=== PATIENT | male | born 1940 ===

== ENCOUNTER 2019-07-02 09:04 | Emergency (ER) | payer MEDICARE ==
[~2019-07-02] VITALS: Ht 167.6 cm; Wt 111.1 kg
[~2019-07-02 09:04] MED LIST: AZIT250 PO; DOCU100 PO; HYDACE5 PO; LORA1 PO; LOSHYD100 PO
[2019-07-02] MEDS ORDERED: METFORMIN HCL500 M3 PO (09:17)
[2019-07-02] MEDS ORDERED: LOSARTAN POTAS100 MG PO (09:17)
[2019-07-02] MEDS ORDERED: Hydrochloroth12.5 MG PO (09:17)
[2019-07-02] MEDS ORDERED: LOSARTAN-HCTZ1 EAC2 PO (09:18)
[2019-07-02] MEDS ORDERED: Norco 10-325 T1 EACH PO (12:27)
== END 2019-07-02 15:40 | disposition home or self-care (01) ==
LOC: ER 09:04
DX: G89.29 Other chronic pain (principal); M54.5 Low back pain; F41.9 Anxiety disorder, unspecified; I10 Essential (primary) hypertension; E11.9 Type 2 diabetes mellitus without complications; E66.01 Morbid (severe) obesity due to excess calories; Z68.39 Body mass index [BMI] 39.0-39.9, adult; Z88.0 Allergy status to penicillin; Z88.8 Allergy status to other drugs, medicaments and biological substances; Z91.048 Other nonmedicinal substance allergy status; Z79.899 Other long term (current) drug therapy; Z79.84 Long term (current) use of oral hypoglycemic drugs
CPT/HCPCS: 72100; 96374; 99283-25; J1170

== ENCOUNTER 2020-10-17 09:52 | Emergency (ER) | payer MEDICARE ==
[~2020-10-17] VITALS: Ht 167.6 cm; Wt 122.5 kg
[~2020-10-17 09:52] MED LIST changes: +Hydrochloroth12.5 MG PO; +LOSARTAN POTAS100 MG PO; +LOSARTAN-HCTZ1 EAC2 PO; +METFORMIN HCL500 M3 PO; +Norco 10-325 T1 EACH PO
[2020-10-17] MEDS ORDERED: FUROSEMIDE40 MG PO (10:25)
[2020-10-17] MEDS ORDERED: HYDR1TAB94 PO (11:01)
== END 2020-10-17 12:07 | disposition home or self-care (01) ==
LOC: ER 09:52
DX: S86.812A Strain of other muscle(s) and tendon(s) at lower leg level, left leg, initial encounter (principal); I10 Essential (primary) hypertension; E11.9 Type 2 diabetes mellitus without complications; Z79.84 Long term (current) use of oral hypoglycemic drugs; Z88.0 Allergy status to penicillin; Z91.09 Other allergy status, other than to drugs and biological substances; Z79.01 Long term (current) use of anticoagulants; Z79.899 Other long term (current) drug therapy; X50.1XXA Overexertion from prolonged static or awkward postures, initial encounter
CPT/HCPCS: 29505; 73562-LT; 99283-25; A9270

== ENCOUNTER 2022-03-02 06:53 | Day surgery (SDC) | payer MEDICARE ==
[~2022-03-02] VITALS: Ht 167.6 cm; Wt 107.3 kg
[~2022-03-02 06:53] MED LIST changes: +FUROSEMIDE40 MG PO; +HYDR1TAB94 PO
--- NOTE | 2022-03-02 09:11 | NUR ---
03/02/22 0911 MATY BRITTON RN DEMETRI HANDOFF REPORT TO [facility] SILVA AND HAND OFF 75MCG FENTANYL. FENTANYL NOW IN [facility] RN POSESSION
== END 2022-03-02 09:51 | disposition home or self-care (01) ==
LOC: ORSCSDS 06:53
PROVIDERS: Orthopaedic Surgery
PROC: 01S40ZZ Reposition Ulnar Nerve, Open Approach (ICD-10-PCS; principal; 2022-03-02 08:00)
DX: G56.21 Lesion of ulnar nerve, right upper limb (principal); I10 Essential (primary) hypertension; Z79.899 Other long term (current) drug therapy; Z79.84 Long term (current) use of oral hypoglycemic drugs; E11.9 Type 2 diabetes mellitus without complications; Z86.718 Personal history of other venous thrombosis and embolism; E66.9 Obesity, unspecified; Z68.38 Body mass index [BMI] 38.0-38.9, adult
CPT/HCPCS: 82947; 93005; 93010; A9270; J1100; J1885; J2250; J2405; J2704; J2795; J3010; J7120

== ENCOUNTER 2023-08-08 17:31 | Emergency (ER) | payer MEDICARE ==
[~2023-08-08] VITALS: Ht 180.3 cm; Wt 90.7 kg
[2023-08-08 18:17] VITALS: BP 41/20
[2023-08-08] MEDS ORDERED: Morphine Sulfate 10 MG/ML 1MLSYR IV ONE ×3 (18:20→19:40)
[2023-08-08 18:37] LABS: Mean Corpuscular HGB 45.6 pg (26.0-34.0); Mean Corpuscular HGB Conc 29.3 g/dL (31.5-36.5); Mean Corpuscular Volume 156 fL (80-100); Mean Platelet Volume 11.9 fL (9.1-12.4); NRBC ABSOLUTE 0.22 K/mm3 (0.00-0.02); NRBC Auto 2.6 /100 WBC (0.0-0.2); Platelet Count 289 K/mm3 (150-400); RDW Coefficient Variation 17.8 % (11.7-14.2); RDW Standard Deviation 97.9 fL (35.1-46.3)
[2023-08-08 18:42] LABS: Hemoglobin 4.1 g/dL (13.5-17.5)
[2023-08-08 18:58] LABS: Albumin, Blood 2.4 g/dL (3.4-5.0); Albumin/Globulin Ratio 0.7 (0.8-1.8); Bilirubin, Total 1.3 mg/dL (0.1-1.0); Calcium, Blood 9.1 mg/dL (8.5-10.1); Creatinine, Blood 2.3 mg/dL (0.60-1.20); Globulin, Blood 3.5 g/dL (2.2-4.0); Potassium, Blood 4.5 mmol/L (3.5-5.5); Total Protein, Blood 5.9 g/dL (6.4-8.2)
[2023-08-08 19:06] LABS: BAND PERCENT MAN 2 % (0-8); BASOPHILS PERCENT MAN 0 % (0-2); EOSINOPHILS PERCENT MAN 0 % (0-6); LYMPHOCYTES % ATYPICAL MANUAL 2 % (0-0); LYMPHOCYTES ABSOLUTE MAN 1.84 K/mm3 (0.84-5.20); LYMPHOCYTES PERCENT MAN 20 % (21-46); MONOCYTES ABSOLUTE MAN 0.75 K/mm3 (0.16-1.47); MONOCYTES PERCENT MAN 9 % (4-13); NEUTROPHILS ABSOLUTE MAN 5.79 K/mm3 (1.96-9.15); SEG NEUTROPHILS PERCENT MAN 67 % (41-73); TOTAL CELLS COUNTED 100
== END 2023-08-08 22:25 ==
LOC: ER 17:31
PROVIDERS: Emergency Medicine
DX: D64.9 Anemia, unspecified (principal); I95.9 Hypotension, unspecified; R00.1 Bradycardia, unspecified; I10 Essential (primary) hypertension; E11.9 Type 2 diabetes mellitus without complications; Z66 Do not resuscitate; Z88.0 Allergy status to penicillin; Z88.8 Allergy status to other drugs, medicaments and biological substances; Z91.048 Other nonmedicinal substance allergy status; Z79.84 Long term (current) use of oral hypoglycemic drugs; Z79.899 Other long term (current) drug therapy
CPT/HCPCS: 80053; 85025; 96374; 99285-25; J2270